=== PATIENT | male | born 1970 | race African-American/Black ===

== ENCOUNTER 2017-02-19 08:49 | Day surgery (SDC) | payer BC ==
[2017-02-18 13:47] VITALS: BMI 30.4
--- NOTE | 2017-02-19 07:43 | HP ---
History & Physical Update - History History: No Change - Physical Physical: No Change - Assessment Assessment: No Change - Plan Plan: No Change
--- NOTE | 2017-02-19 07:48 | OP ---
Operative Note - Note: Operative Date: 02/19/17 Pre-Operative Diagnosis: elective sterilization Operation: bilateral vasectomy Findings: normal anatomy Post-Operative Diagnosis: Same as Pre-op Surgeon: Srikanth Green Anesthesiologist/SHEET COMBINING OPERATOR: Aakash Delgado Anesthesia: General, Local Specimens Removed: portion of bilateral vas deferens Operative Report Dictated: Yes
[2017-02-19] MEDS ORDERED: MIDAZOLAM HCL 2 MG/2 ML SINGLE DOSE VIAL ONE (10:10)
[2017-02-19] MEDS ORDERED: PROPOFOL 20 ML ONE ×2 (10:47→10:48)
[2017-02-19] MEDS ORDERED: ceFAZolin SODIUM 1 GM VIAL IVPB ONE (10:56)
[2017-02-19] MEDS ORDERED: BUPIVACAINE HCL/PF 0.5% (5MG/ML) 10 ML VIAL IJ ONE (11:22)
[2017-02-19] MEDS ORDERED: ONDANSETRON 4 MG/2 ML VIAL IVPUSH PRN (11:38)
[2017-02-19] MEDS ORDERED: oxyCODONE HCL 5 MG TABLET PO PRN (11:38)
[2017-02-19 15:35] VITALS: BP 115/56; PULSE 65; TEMP 97.8
--- NOTE | 2017-02-19 18:08 | OP ---
DATE OF OPERATION: 02/19/2017 PREOPERATIVE DIAGNOSIS: Elective sterilization. POSTOPERATIVE DIAGNOSIS: Elective sterilization. PROCEDURE: Bilateral vasectomy. SURGEON: Srikanth Reilly M.D. NUISANCE ANIMAL DAMAGE CONTROL AGENT: None. ANESTHESIA: General via laryngeal mask plus local. ANESTHESIOLOGIST: Aakash Delgado M.D. SPECIMENS: Portion of bilateral vas deferens. CULTURES: None. DRAINS: None. ESTIMATED BLOOD LOSS: Negligible. COMPLICATIONS: None. PROCEDURE: Patient was brought in the operating room, placed on the operating table in the supine position. After administration of general anesthesia, intravenous antibiotics, patient was placed in the supine position and the genitals were shaved first, then prepped and draped in the usual sterile manner. First 5 mL of 0.5% Marcaine was injected into the neck of the scrotum into the spermatic cord on each side for cord block. Now the right vas deferens was isolated between thumb and forefinger, and a 1-cm transverse scrotal incision was made overlying the vas deferens, carried down . The vas deferens with grasped with a sharp towel clip and elevated. Now the sheath of the vas deferens was incised longitudinally and the vas deferens was isolated between Mosquito clamps. A small segment of the vas deferens was excised, sent to pathology as specimen. The lumen of the vas deferens was cauterized using a needle tip Bovie, both proximally and distally. Now, the cut ends of the vas deferens were ligated with 0 Vicryl ligatures. Hemostasis was assured, and the contralateral vasectomy on the left side was now done in an identical manner. Once hemostasis was assured, the wound was closed with interrupted 4-0 chromic vertical mattress sutures. He tolerated the procedure well, transferred to the recovery room in stable condition. Sterile Dermabond was placed scrotal support. He tolerated the procedure well. SRIKANTH REILLY M.D. ROGE/[id number]
== END 2017-02-19 14:30 | disposition home or self-care (01) ==
LOC: JASU-SURG 08:49
PROVIDERS: ATTEND Urology
PROC: 0VTQ0ZZ Resection of Bilateral Vas Deferens, Open Approach (ICD-10-PCS; principal; 2017-02-19 10:00)
DX: Z30.2 Encounter for sterilization (principal)
CPT/HCPCS: 88302-TC; 94760

== ENCOUNTER 2022-04-02 04:38 | Day surgery (SDC) | payer BC ==
[2022-03-30 13:27] VITALS: BMI 28.6
[2022-04-02 10:02] VITALS: TEMP 98
[2022-04-02 10:57] VITALS: BP 125/75; PULSE 60
== END 2022-04-02 11:24 | disposition home or self-care (01) ==
LOC: JASU-ENDO 04:38
PROVIDERS: ATTEND Internal Medicine Gastroenterology
PROC: 0DBH8ZX Excision of Cecum, Via Natural or Artificial Opening Endoscopic, Diagnostic (ICD-10-PCS; principal; 2022-04-02 09:30)
DX: Z12.11 Encounter for screening for malignant neoplasm of colon (principal); D12.1 Benign neoplasm of appendix; E11.9 Type 2 diabetes mellitus without complications
CPT/HCPCS: 82962; 88305-TC